=== PATIENT | female | born 1960 | race Caucasian/White ===

== ENCOUNTER 2018-10-20 04:53 | Day surgery (SDC) | payer OTHER ==
[2018-10-10 14:22] VITALS: BMI 27.3
[~2018-10-20 04:53] MED LIST: ceFAZolin SODIUM 1 GM VIAL IVPB ONE
[2018-10-20] MEDS ORDERED: ceFAZolin SODIUM 1 GM VIAL IVPB ONE (10:55)
[2018-10-20] MEDS ORDERED: fentaNYL CITRATE 250 MCG/5 ML VIAL ONE (11:13)
[2018-10-20] MEDS ORDERED: PROPOFOL 20 ML ONE (11:14)
[2018-10-20] MEDS ORDERED: MIDAZOLAM HCL 2 MG/2 ML SINGLE DOSE VIAL ONE (11:14)
[2018-10-20] MEDS ORDERED: ROCURONIUM BROMIDE 50 MG/5 ML VIAL ONE (11:14)
[2018-10-20] MEDS ORDERED: NEOSTIGMINE METHYLSULFATE 0.5 MG/ML - 10 ML MDV ONE (12:19)
[2018-10-20] MEDS ORDERED: ONDANSETRON 4 MG/2 ML VIAL IVPUSH PRN (12:54)
[2018-10-20] MEDS ORDERED: oxyCODONE HCL 5 MG TABLET PO ONE ×2 (12:54→15:00)
[2018-10-20] MEDS ORDERED: LACTATED RINGERS SOLUTION 1,000 ML IV SCH (13:00)
--- NOTE | 2018-10-20 13:06 | OP ---
Operative Note - Note: Operative Date: 10/20/18 Pre-Operative Diagnosis: Amenorrhea, pelvic pain Operation: Hysteroscopy, Laparoscopic bilateral salpingectomy, Laparoscopic right oophorectomy Findings: as dictated Post-Operative Diagnosis: Same as Pre-op Surgeon: Damaris Calzada Traveling Buyer: Soumya Lewis Anesthesiologist/PRECISION LENS POLISHER: Yoni Sharp Anesthesia: General Specimens Removed: Right ovary, bilateral fallopian tubes Estimated Blood Loss (mls): 5 (ml) Drains, Volume Out (mls): 75 (ml clear urine) Fluid Volume Replaced (mls): 1 (L LR) Operative Report Dictated: Yes
--- NOTE | 2018-10-20 13:07 | SURG ---
Surgery Physician Assistant Primary Care Note Physician Assistant Primary Care: Soumya Lewis PA-C (Suzy) Date of Service: 10/20/18 Diagnosis: Amenorrhea, pelvic pain Procedure: Bilateral salpingectomy, right oophorectomy I was present for the entirety of the operative procedure. For further detail, please refer to operative report. Visit type - Case Type Case Type: Scheduled - Emergency Emergency Visit: No - New patient This patient is new to me today: Yes Date on this admission: 10/20/18 - Critical Care Critical Care patient: No
--- NOTE | 2018-10-20 13:18 | HP ---
History & Physical Update - History History: No Change - Physical Physical: No Change - Assessment Assessment: No Change - Plan Plan: No Change (No change in HP)
--- NOTE | 2018-10-20 13:32 | OP ---
Operative Note - Note: Operative Date: 10/20/18 Pre-Operative Diagnosis: right ovarian cyst. pelvic pain Operation: laparoscopic bilateral salpingectomy. laparoscopic right oophorectomy. hysteroscopy Findings: right 7 cm ovarian cyst Post-Operative Diagnosis: Same as Pre-op Surgeon: Damaris Calzada Electric Powerline Examiner: Soumya Lewis Anesthesia: General Estimated Blood Loss (mls): 10 Operative Report Dictated: Yes
[2018-10-20] MEDS ORDERED: ONDANSETRON 4 MG/2 ML VIAL ONE (14:18)
[2018-10-20] MEDS ORDERED: ONDANSETRON 4 MG/2 ML VIAL IVPUSH ONE (14:20)
[2018-10-20] MEDS ORDERED: oxyCODONE HCL 5 MG TABLET ONE (14:46)
[2018-10-20 16:06] VITALS: BP 133/82; PULSE 64; TEMP 98
--- NOTE | 2018-10-20 21:45 | OP ---
DATE OF OPERATION: 10/20/2018 PREOPERATIVE DIAGNOSIS: Pelvic pain, right ovarian cyst. OPERATION: Laparoscopic bilaterally salpingectomy and laparoscopic right oophorectomy, hysteroscopy, cervical dilation. FINDINGS: Cervical stenosis as well as right ovarian 7- to 8-cm cyst. SURGEON: Damaris Calzada MD HEAD COOK: Milka Lewsi ANESTHESIA: General. ESTIMATED BLOOD LOSS: 10 mL. DESCRIPTION OF PROCEDURE: The patient was taken to the operating room and placed in dorsal lithotomy position and prepped and draped in usual sterile fashion. Time-out was performed in accordance with hospital regulation. Scalpel was then used to make an umbilical incision. Veress needle was inserted into the cavity. Approximately 3-4 L of CO2 was insufflated. Veress needle was then removed, and a 5-mm trocar was then inserted. Laparoscope and camera were attached. Visualization revealed 7-cm right ovarian cyst, normal tubes, and normal left ovary. Two trocars were placed in the lower abdomen under direct visualization as the scalpel had made an incision in the skin. Trocars were inserted under direct visualization. One 10-mm trocar was inserted on the left side and a 5-mm trocar was inserted on the left side. Right ovary was seen and noted to have a 7- to 8-cm ovarian cyst. Evaluation of the cyst was done. LigaSure was then inserted into the abdomen. Also, the needle was inserted, and drainage of the ovarian cyst was done. Cystic fluid was sent to Cytology. Cautery and cutting of the right ovary were then done. The left ovary was noted to be normal. Tubes were also noted to be normal. Grasp of the tubes was then done and coagulation and cutting of both fallopian tubes was done. Specimens were removed and submitted to Pathology. CO2 was then removed from the abdomen after hemostasis had been achieved and all pedicles were checked. Incisions were then closed using 4-0 Biosyn suture in a subcuticular fashion. Wound was washed and dressed. The patient tolerated the procedure well. Attention was then drawn where a speculum was placed in the vagina. The cervix was grasped with single-tooth tenaculum. The cervix was noted to be stenotic and unable to dilate. Finally, dilation was able to be done, and visualization with a diagnostic scope revealed probably a false passage, and endometrial cavity could not be seen. Procedure was then aborted. Hysteroscopy was done but unable to get into the endometrial cavity. All instruments were then removed. The patient had tolerated the procedure well. Again, estimated blood loss was 10 mL. DAMARIS CALZADA M.D. [id number]
--- NOTE | 2018-10-22 17:12 | PATH ---
Surgical Pathology Report Patient Name: YOLADNA BULLOCK [facility]. Rec. #: [id number] /Age/Gender: 1960 (Age: 58) / F Account: [id number] Location: AMBULATORY SURG Taken: 10/20/2018 Received: 10/20/2018 Reported: 10/22/2018 Physicians: Damaris Calzada M.D. Specimen(s) Received A: OVARIAN CYST, RIGHT B: FALLOPIAN TUBE, RIGHT C: FALLOPIAN TUBE, LEFT Clinical History Pelvic pain, amenorrhea Final Diagnosis A. OVARIAN CYST, RIGHT, OOPHORECTOMY: RIGHT OVARY WITH SEROUS CYSTADENOMA. B. FALLOPIAN TUBE, RIGHT, SALPINGECTOMY: UNREMARKABLE FALLOPIAN TUBE (INCLUDING FIMBRIATED END AND FULL LUMINAL PORTION). C. FALLOPIAN TUBE, LEFT, SALPINGECTOMY: UNREMARKABLE FALLOPIAN TUBE (INCLUDING FIMBRIATED END AND FULL LUMINAL PORTION). Electronically Signed Hortensia Funk M.D. Gross Description A. Received in formalin labeled "right ovarian cyst," is a 4.4 x 3.0 x 1.1 cm intact cystic structure. The outer surface is martínez mar and smooth. There is clear serous fluid within the lumen. The inner lining is smooth. No excrescences are identified. There is no normal ovarian parenchyma identified. Wire Chief sections are submitted in 4 cassettes. B. Received in formalin labeled "right fallopian tube," is a 4.3 cm in length fimbriated fallopian tube. The outer surface is martínez-kwok and smooth. Sectioning reveals an unremarkable lumen. Wire Chief sections are submitted in 2 cassettes as follows: 1-fimbria; 2-cross sections of fallopian tube. C. Received in formalin labeled "left fallopian tube," is a 4.5 cm in length fimbriated fallopian tube. The outer surface is martínez mar and smooth. Sectioning reveals an unremarkable lumen. Wire Chief sections are submitted in 2 cassettes as follows: 1-fimbria; 2-cross sections of fallopian tube. 10/21/201810/21/2018
--- NOTE | 2018-10-22 17:43 | PATH ---
Cytology Non-Gynecological Report Patient Name: YOLANDA BULLOCK [facility]. Rec. #: [id number] /Age/Gender: 1960 (Age: 58) / F Account: [id number] Location: AMBULATORY SURG Taken: 10/20/2018 Received: 10/20/2018 Reported: 10/22/2018 Physicians: Damaris Calzada M.D. Specimen(s) Received OVARIAN CYST FLUID Clinical History Ovarian cyst fluid Final Diagnosis OVARIAN CYST FLUID FOR CYTOLOGY: SATISFACTORY FOR EVALUATION NO MALIGNANT CELLS IDENTIFIED. BENIGN CILIATED EPITHELIAL CELLS ADMIXED WITH DEGENERATIVE INFLAMMATORY CELLS, CONSISTENT WITH A BENIGN SEROUS CYST. ALSO SEE CONCURRENT PATHOLOGY REPORT [id number]. Electronically Signed Fernanda Jimenez M.D. Gross Description Approximately 20cc of clear in color 10/22/2018 fluid received fresh. One slide and one cellblock prepared.
== END 2018-10-20 16:00 | disposition home or self-care (01) ==
LOC: JASUSAT 04:53
PROVIDERS: ATTEND Obstetrics & Gynecology
PROC: 0UB04ZZ Excision of Right Ovary, Percutaneous Endoscopic Approach (ICD-10-PCS; principal; 2018-10-20 10:30)
PROC: 0UB74ZZ Excision of Bilateral Fallopian Tubes, Percutaneous Endoscopic Approach (ICD-10-PCS; 2018-10-20 10:30)
DX: N83.201 Unspecified ovarian cyst, right side (principal)
CPT/HCPCS: 36415; 84702; 86850; 86900; 86901; 88108; 88302-TC; 88305-TC; 88307-TC; 94760